=== PATIENT | female | born 2000 | race Caucasian/White ===

== ENCOUNTER → 2021-08-06 10:01 | Outpatient (CLI) | payer OTHER, MEDICAID, SELFPAY ==
--- NOTE | 2021-08-06 10:04 | DI.RAD.S_ITS ---
PROCEDURE: XR LUMBAR SPINE MIN 4V INDICATIONS: chronic low back pain and pelvis pain TECHNIQUE: 5 views of the lumbar spine were acquired, including bilateral oblique views. COMPARISON: None. FINDINGS: Bones: 5 nonrib-bearing vertebrae are present. There is normal bony alignment. No acute vertebral body compression fractures. No suspicious bony lesions. There are postsurgical changes of spinal fusion from L4 through S1 with bilateral pedicular screws and paraspinal rods. There is also arthrodesis across the bilateral sacroiliac joints as well as long arthrodesis screw transfixing the bilateral iliac wings. No evidence for hardware loosening or failure. A fixation screw projects across the left superior acetabulum. Soft tissues: Overlying bowel gas pattern is normal. No suspicious soft tissue calcifications. Oblique images: No pars defects. IMPRESSION: Lumbar spine without acute fracture or malalignment. Postsurgical changes of lumbosacral fusion and arthrodesis of the sacroiliac joints. No evidence for hardware complication. Dictated by: Marcelo Nichols M.D. on 08/06/2021 at 17:30 Approved by: Marcelo Nichols M.D. on 08/06/2021 at 17:33
--- NOTE | 2021-08-06 10:04 | DI.RAD.S_ITS ---
PROCEDURE: XR HIP W PEL IF DONE KEREN MIN 4V INDICATIONS: chronic low back pain and pelvis pain TECHNIQUE: AP pelvis with lateral view(s) of the bilat hip(s). COMPARISON: None. FINDINGS: Bones: No fractures or dislocations. Pelvic ring appears intact. No suspicious bony lesions. Fusion is present within the lower lumbar spine with bilateral SI joint fusion. In addition, fixation is also noted overlying the left acetabulum and pubic ramus. All hardware is intact without evidence of hardware fracture or periprosthetic lucency to suggest loosening. Soft tissues: The visualized bowel gas pattern is normal. No suspicious soft tissue calcifications. IMPRESSION: Postsurgical fusion. Otherwise, unremarkable exam. Dictated by: Joyce Vaca M.D. on 08/06/2021 at 13:43 Approved by: Joyce Vaca M.D. on 08/06/2021 at 13:44
== END ==
PROVIDERS: PCP Family Medicine; Referring Provider Family Medicine; Visit Provider Family Medicine
DX: S32.9XXA Fracture of unspecified parts of lumbosacral spine and pelvis, initial encounter for closed fracture (principal); Q65.89 Other specified congenital deformities of hip; M54.59 Other low back pain; R10.2 Pelvic and perineal pain; G89.29 Other chronic pain; Z98.1 Arthrodesis status
CPT/HCPCS: 72110; 73522

== ENCOUNTER → 2021-11-12 14:33 | Outpatient (CLI) | payer OTHER, MEDICAID, SELFPAY ==
--- NOTE | 2021-11-12 14:36 | DI.CT.S_ITS ---
PROCEDURE: CT PEL WO CON INDICATIONS: STATUS POST INSTRUMENTED FUSION SECONDARY TO TRAUMA TECHNIQUE: Noncontrast 3 mm axial sections acquired through the bony pelvis, with coronal and sagittal reformatting. COMPARISON: [facility], CR, XR HIP W PEL IF DONE KEREN 3TO4V, 08/06/2021, 10:17. FINDINGS: Image quality: Excellent. Bones: Postsurgical changes are partially seen from posterior fusion of the lower lumbar spine with bilateral pedicle screws and interbody rods as well as bilateral sacroiliac screws. A single trans sacral screw is present. Additional metallic screw is seen in the left pelvis extending through the left superior pubic ramus. Metallic hardware is intact without signs of loosening. Prior fractures appear healed. Mild residual fracture deformity is seen in the posterior right sacrum and in the superior lateral left bret sacrum. No acute osseous abnormality. No osseous fusion is seen across the sacroiliac joints. Minimal degenerative changes are seen in the sacroiliac joints bilaterally. Mild chronic fracture deformity of the left inferior pubic ramus. Soft tissues: The musculature surrounding the pelvis is normal in bulk. No significant joint effusion in the hips. The articular cartilages, labrum, ligaments, and tendons are not well evaluated with standard CT. Included pelvic soft tissues demonstrate no acute abnormality. IMPRESSION: Postsurgical changes from prior sacral and pelvic fracture . The metallic hardware is intact. No acute osseous abnormality. Dictated by: Jose Anne M.D. on 11/12/2021 at 20:19 Approved by: Jose Anne M.D. on 11/12/2021 at 20:25
--- NOTE | 2021-11-12 14:36 | DI.CT.S_ITS ---
PROCEDURE: CT LUMBAR SPINE WO CON INDICATIONS: STATUS POST INSTRUMENTED FUSION SECONDARY TO TRAUMA TECHNIQUE: Noncontrast 3 mm thick sections acquired from the T12 level to the sacrum. Sagittal and coronal reformats were constructed. For radiation dose reduction, the following was used: automated exposure control. COMPARISON: [facility], CR, XR LUMBAR SPINE MIN 4V, 08/06/2021, 10:12. FINDINGS: Image quality: There is artifact associated with the metallic hardware. Artifact from the metallic hardware is reduced by metal reconstruction algorithm. Bones: There is normal bony alignment. No acute vertebral body compression fractures. No suspicious lytic or blastic bony lesions. No pars defects. Postoperative hardware is seen, with bilateral pedicle screws at L4, L5, and S1. Additional sacral screws are seen as well as a screw traversing the posterior iliac bones as well as sacrum. The right-sided screw at the L5 level is somewhat superiorly angled, as seen on series 5 image 34. The screws otherwise appear well placed. On the professional skater image, and anterior pelvis screws also seen. No findings of hardware failure or hardware loosening are seen. There has been removal of portions of the posterior elements. Bone grafting material is noted. The disc heights are relatively well preserved. No definite central canal narrowing can be seen. No significant neural foraminal narrowing is detected. Soft tissues: No retroperitoneal masses or hematomas. Visualized aorta is normal in caliber. IMPRESSION: Intact appearing hardware. No significant disc pathology, central canal narrowing, or neural foraminal narrowing can be seen. Dictated by: Tan Amato M.D. on 11/12/2021 at 15:39 Approved by: Tan Amato M.D. on 11/12/2021 at 15:46
== END ==
PROVIDERS: PCP Family Medicine; Referring Provider Physical Medicine & Rehabilitation; Visit Provider Physical Medicine & Rehabilitation
DX: Z09 Encounter for follow-up examination after completed treatment for conditions other than malignant neoplasm (principal); Z98.1 Arthrodesis status
CPT/HCPCS: 72131; 72192

== ENCOUNTER → 2023-01-08 13:06 | Outpatient (CLI) | payer OTHER, MEDICARE, MEDICAID, SELFPAY ==
[2023-01-08 14:52] LABS: Add Manual Diff / Slide Review NO; Basophils Absolute Auto 0 /uL (0-100); Basophils Percent Auto 0.5 % (0-2); Eosinophils Absolute Auto 100 /uL (0-450); Eosinophils Percent Auto 1.6 % (2-4); Hematocrit 31.9 % (36-46); Hemoglobin 10.6 g/dL (12.0-16.0); Lymphocytes Absolute Auto 1900 /uL (1100-4500); Lymphocytes Percent Auto 47.6 % (25-40); Mean Corpuscular HGB Conc 33.3 % (30-36); Mean Corpuscular Hemoglobin 27.8 PG (26-34); Mean Corpuscular Volume 83.7 fL (80-100); Monocytes Absolute Auto 300 /uL (0-900); Monocytes Percent Auto 7.1 % (3-14); Neutrophils Absolute Auto 1700 /uL (1500-7000); Neutrophils Percent Auto 43.2 % (50-75); Platelet Count 251 X10^3/uL (150-400); Red Blood Cell Count 3.82 X10^6/uL (4.0-5.2); Red Cell Distribution Width 17.1 % (11.6-14.8)
[2023-01-08 15:24] LABS: Alanine Aminotransferase 13 IU/L (<35); Albumin 4.7 g/dL (3.5-5.0); Albumin Globulin Ratio 1.7 (1.0-2.8); Alkaline Phosphatase 46 U/L (38-126); Aspartate Aminotransferase 26 IU/L (14-36); BUN Creatinine Ratio 9.4 (6-22); Bilirubin Total 0.4 mg/dL (0.2-1.3); Blood Urea Nitrogen 6 mg/dL (7-17); Calcium 9.4 mg/dL (8.4-10.2); Carbon Dioxide 25 mmol/L (22-32); Chloride 103 mmol/L (98-107); Cholesterol 214 mg/dL (140-199); Estimated Glomerular Filt Rate > 60 mL/min (>60); Globulin 2.8 g/dL (1.7-4.1); Glucose 87 mg/dL (70-100); HDL Cholesterol 65 mg/dL (40-60); HEMOLYSIS < 15 (0-50); LDL Cholesterol Calculated 131 mg/dL (<100); Sodium 138 mmol/L (137-145); Total Protein 7.5 g/dL (6.3-8.2); Triglycerides 90 mg/dL (35-150)
[2023-01-08 15:50] LABS: TSH w/ Reflex to FT4 1.11 uIU/mL (0.47-4.68)
== END ==
PROVIDERS: PCP Family Medicine; Referring Provider Family Medicine; Visit Provider Family Medicine
DX: F43.10 Post-traumatic stress disorder, unspecified (principal); F41.9 Anxiety disorder, unspecified; F32.A Depression, unspecified; R10.2 Pelvic and perineal pain; N94.6 Dysmenorrhea, unspecified
CPT/HCPCS: 36415; 80053; 80061; 84443; 85025

== ENCOUNTER → 2023-01-23 13:13 | Outpatient (CLI) | payer OTHER, MEDICARE, MEDICAID, SELFPAY ==
[2023-01-23 13:46] LABS: Add Manual Diff / Slide Review NO; Basophils Absolute Auto 0 /uL (0-100); Basophils Percent Auto 0.8 % (0-2); Eosinophils Absolute Auto 0 /uL (0-450); Eosinophils Percent Auto 0.7 % (2-4); Hematocrit 30.9 % (36-46); Hemoglobin 10.5 g/dL (12.0-16.0); Lymphocytes Absolute Auto 1900 /uL (1100-4500); Lymphocytes Percent Auto 40.5 % (25-40); Mean Corpuscular Hemoglobin 28.4 PG (26-34); Mean Corpuscular Volume 83.3 fL (80-100); Monocytes Absolute Auto 300 /uL (0-900); Monocytes Percent Auto 6.2 % (3-14); Neutrophils Absolute Auto 2400 /uL (1500-7000); Neutrophils Percent Auto 51.8 % (50-75); Platelet Count 225 X10^3/uL (150-400); Red Blood Cell Count 3.71 X10^6/uL (4.0-5.2); Red Cell Distribution Width 16.9 % (11.6-14.8); White Blood Cell Count 4.6 X10^3/uL (4.5-11.0)
[2023-01-23 14:12] LABS: HEMOLYSIS < 15 (0-50); Iron 71 ug/dL (37-170)
[2023-01-23 14:26] LABS: Percent Iron Saturation 24 % (15-50); Total Iron Binding Capacity 292 ug/dL (265-497); Transferrin 217 mg/dL (206-381)
[2023-01-23 14:32] LABS: Ferritin 7 ng/mL (6-137)
== END ==
PROVIDERS: PCP Family Medicine; Referring Provider Family Medicine; Visit Provider Family Medicine
DX: N94.6 Dysmenorrhea, unspecified (principal); D50.9 Iron deficiency anemia, unspecified
CPT/HCPCS: 36415; 82728; 83540; 83550; 85025

== ENCOUNTER → 2023-02-10 14:18 | Outpatient (CLI) | payer OTHER, MEDICARE, MEDICAID, SELFPAY ==
--- NOTE | 2023-02-10 14:22 | DI.US.S_ITS ---
PROCEDURE: US PELVIC COMPLETE INDICATIONS: Pelvic pain/spotting between menses TECHNIQUE: Real-time scanning was performed of the pelvic organs, with image documentation. Additional endovaginal scanning was necessary due to incomplete visualization of the adnexal and endometrial structures by transabdominal scanning. COMPARISON: None. FINDINGS: Uterus: Uterus is anteverted and normal in size at 9.1 x 3.6 x 4.2 cm. The myometrium is homogeneous. The endometrium measures 0.8 mm combined thickness. Ovaries: The right ovary measures 4.0 x 3.0 x 2.9 cm, with a calculated ovarian volume of 18.3 cc. The left ovary measures 3.8 x 2.0 x 1.9 cm, with a calculated ovarian volume of 7.7 cc. The ovaries have a normal sonographic appearance. Less than 12 follicles can be seen in each ovary. No adnexal masses are seen. Other: No pathologic free abdominal or pelvic fluid. IMPRESSION: Unremarkable pelvic ultrasound. We strive to produce accurate, complete, and clear reports of imaging services. To assist us in improving patient care, this report was composed using standard report templates and voice recognition software. Therefore, it may contain abnormal punctuation, insertions and/or omissions. Occasional wrong-word or sound-alike substitutions may occur. Though we review the report and make efforts to correct it, we do recommend that the report be read carefully in proper context to recognize any text inaccuracies. Dictated by: Di Bueno M.D. on 02/10/2023 at 15:08 Approved by: Di Bueno M.D. on 02/10/2023 at 15:09
== END ==
PROVIDERS: PCP Family Medicine; Referring Provider Family Medicine; Visit Provider Family Medicine
DX: N94.6 Dysmenorrhea, unspecified (principal); R10.2 Pelvic and perineal pain; N92.3 Ovulation bleeding
CPT/HCPCS: 76830; 76856

== ENCOUNTER → 2023-06-27 11:57 | Outpatient (CLI) | payer OTHER, MEDICARE, MEDICAID, SELFPAY ==
[2023-06-27 12:50] LABS: Add Manual Diff / Slide Review NO; Basophils Absolute Auto 0 /uL (0-100); Basophils Percent Auto 0.8 % (0-2); Eosinophils Absolute Auto 100 /uL (0-450); Eosinophils Percent Auto 1.7 % (2-4); Hematocrit 38.5 % (36-46); Hemoglobin 13.2 g/dL (12.0-16.0); Lymphocytes Absolute Auto 1400 /uL (1100-4500); Lymphocytes Percent Auto 34.3 % (25-40); Mean Corpuscular HGB Conc 34.2 % (30-36); Mean Corpuscular Hemoglobin 30.8 PG (26-34); Mean Corpuscular Volume 90.2 fL (80-100); Monocytes Absolute Auto 500 /uL (0-900); Monocytes Percent Auto 12.3 % (3-14); Neutrophils Absolute Auto 2100 /uL (1500-7000); Neutrophils Percent Auto 50.9 % (50-75); Platelet Count 195 X10^3/uL (150-400); Red Blood Cell Count 4.27 X10^6/uL (4.0-5.2); Red Cell Distribution Width 12.7 % (11.6-14.8)
[2023-06-27 13:52] LABS: HEMOLYSIS < 15 (0-50); Iron 69 ug/dL (37-170)
[2023-06-27 14:03] LABS: Percent Iron Saturation 27 % (15-50); Total Iron Binding Capacity 257 ug/dL (265-497); Transferrin 212 mg/dL (206-381)
[2023-06-27 14:30] LABS: Ferritin 11 ng/mL (6-137)
== END ==
PROVIDERS: PCP Family Medicine; Referring Provider Family Medicine; Visit Provider Family Medicine
DX: D50.9 Iron deficiency anemia, unspecified (principal)
CPT/HCPCS: 36415; 82728; 83540; 83550; 85025

== ENCOUNTER → 2024-09-02 07:27 | Outpatient (CLI) | payer MEDICARE, MEDICAID, SELFPAY ==
--- NOTE | 2024-09-02 07:28 | DI.US.S_ITS ---
PROCEDURE: US ABDOMEN LIMITED INDICATIONS: right upper quadrant discomfort, mass deep rib wall right TECHNIQUE: Real-time scanning was performed of the abdominal and retroperitoneal organs, with image documentation. COMPARISON: None. FINDINGS: Liver: Liver is normal in size and homogeneous in echotexture. Gallbladder: No gallstones. No wall thickening. No pericholecystic edema. Negative sonographic Wesley's sign. Biliary ducts: Intrahepatic bile ducts are non-dilated. Extrahepatic bile duct caliber is not well seen. Normal is 6-7 mm or less in diameter, or 10 mm or less post-cholecystectomy. Pancreas: Visualized portions of the pancreas are sonographically normal. Miscellaneous: No free abdominal fluid. Area palpable concern at the right rib chest wall demonstrates no visualized abnormality. IMPRESSION: Unremarkable exam. Dictated by: Joyce Vaca M.D. on 09/03/2024 at 16:35 Approved by: Joyce Vaac M.D. on 09/03/2024 at 16:36
== END ==
LOC: US 07:27
PROVIDERS: PCP Family Medicine; Referring Provider Family Medicine; Visit Provider Family Medicine
DX: R22.2 Localized swelling, mass and lump, trunk (principal); R10.11 Right upper quadrant pain
CPT/HCPCS: 76705